=== PATIENT | female | born 1945 | race Caucasian/White ===

== ENCOUNTER → 2016-11-02 | Outpatient (CLI) | payer MEDICARE, OTHER ==
[~2016-11-02] MED LIST: ACTOS30 MG; ALTACE5 MG PO; ASPIRIN EC81 MG PO; BIOTENE)(DRY MO16 OZ PO; CLARITIN10 MG PO; COLACE100 MG PO; COMPAZINE10 MG PO; COREG6.25 MG PO; COUMADIN ** IA5 MG PO; DIFLUCAN ORA40 MG/ML PO; DULERA 100 MCG/51 EA INH; DURAGESIC 25MC25 MCG TRANS; GLIPIZIDE5 MG PO; GLUCOPHAGE500 MG PO; HYDROCODON-ACET15 ML PO; LASIX20 MG PO; LEVAQUIN 250 M250 MG; MAG119MX PO; MORPHINE S100 MG/5 M PO; NEUTRA-PHOS (PHO1 EA PO; NORCO 5-325 MG1 TAB PO; OXYGEN M-15 INH; PROTONIX40 MG PO; PROVENTIL OR V6.7 GM INH; RAMIPRIL5 MG PO; SPIRIVA HANDIHA1 KIT INH; XARELTO15 MG PO; XARELTO20 MG PO; ZOCOR40 MG PO; ZOFRAN ODT8 MG SL
[2016-11-02 14:14] LABS: HEMATOCRIT 35.4 % (33.0-46.0); HEMOGLOBIN 11.3 g/dL (10.0-15.0); MCH 32.1 pg (27.0-34.0); MCHC 31.9 gm/dL (32.0-36.5); MCV 100.6 fl (83.0-98.0); MPV 9.3 fl (9.4-12.4); RBC 3.52 M/uL (3.50-5.50); RDW-CV 13.8 % (11.9-14.6); WBC 7.1 K/uL (4.0-11.0)
[2016-11-02 14:22] LABS: INR - (THERAPEUTIC) 1.08 (0.92-1.07); PROTIME 11.4 SECONDS (9.8-11.4)
[2016-11-02 14:26] LABS: ALBUMIN 2.8 gm/dL (3.5-5.0); ANION GAP 9.9 (10.0-19.0); CALCIUM 8.5 mg/dL (8.5-10.5); CREATININE 0.7 mg/dL (0.5-1.1); PHOSPHORUS 2.7 mg/dL (2.5-4.9); POTASSIUM 3.9 mMol/L (3.7-5.1)
== END | disposition disaster alternative care site (69) ==
LOC: GOPD 10-30
PROVIDERS: Radiology Diagnostic Radiology
DX: C34.11 Malignant neoplasm of upper lobe, right bronchus or lung (principal); C79.89 Secondary malignant neoplasm of other specified sites
CPT/HCPCS: J2001; J7030